=== PATIENT | female | born 1940 | race Hispanic/Latino ===

== ENCOUNTER 2017-09-15 12:33 | Observation (INO) | payer MEDICARE, OTHER ==
[~2017-09-15] VITALS: Ht 152.4 cm; Wt 70.8 kg
[~2017-09-15 12:33] MED LIST: LISINOPRIL40 MG PO; Z.0.DIOVAN160 MG PO; Z.0.LEVEMIR 3M100 UN SQ; Z.0.NOVOLOG100 UNIT/ SQ; Z.2.METFORMIN HCL500 PO
[2017-09-15 13:05] VITALS: BP 190/85
[2017-09-15 13:28] LABS: BASOPHILS % 0.5 % (0.0-1.0); EOSINOPHILS # (AUTO) 0.2 (0.0-0.4); EOSINOPHILS % 2.5 % (0.0-6.0); LYMPHOCYTES # (AUTO) 1.3 (1.0-3.2); LYMPHOCYTES % 20.4 % (18.0-39.1); MEAN CORPUSCULAR HGB CONC 28.3 g/dL (31-35); MONOCYTES # (AUTO) 0.6 (0.2-0.8); MONOCYTES % 8.9 % (4.4-11.3); NEUTROPHILS # (AUTO) 4.3 (2.1-6.9); NEUTROPHILS % 67.5 % (38.7-80.0); PLATELET COUNT 131 x10e3/uL (140-360); RED BLOOD COUNT 3.06 x10e6/uL (3.6-5.1); RED CELL DISTRIBUTION WIDTH 19.2 % (11.7-14.4)
[2017-09-15 13:33] LABS: HEMATOCRIT 20.5 % (34.2-44.1); HEMOGLOBIN 5.8 g/dL (12.0-16.0)
[2017-09-15 13:35] VITALS: BP 190/85
[2017-09-15] MEDS ORDERED: SODIUM CHLORIDE 0.9% 250ML 250 ML IV ONE (14:00)
[2017-09-15 15:32] VITALS: BP 187/80
[2017-09-15] MEDS ORDERED: METFORMIN HCL 500 MG TAB PO SCH (17:00)
[2017-09-15 18:55] VITALS: BP 209/77
[2017-09-15] MEDS ORDERED: HYDRALAZINE HCL 20 MG/ML VIAL IV STA (20:14)
[2017-09-15] MEDS ORDERED: FUROSEMIDE INJ 10 MG/ML 2 ML VIAL IV ONE (20:15)
[2017-09-15] MEDS ORDERED: DONEPEZIL HCL 5 MG TAB PO SCH (21:00)
[2017-09-15] MEDS ORDERED: SODIUM CHLORIDE 0.9% 250ML 250 ML ONE (21:21)
[2017-09-16] VITALS: BP 147/69
[2017-09-16 02:08] LABS: HEMATOCRIT 24.8 % (34.2-44.1)
[2017-09-16 02:11] LABS: HEMOGLOBIN 7.2 g/dL (12.0-16.0)
[2017-09-16] MEDS ORDERED: PROPRANOLOL HCL10 MG PO (02:31)
[2017-09-16] MEDS ORDERED: DONEPEZIL HCL10 MG (02:31)
[2017-09-16] MEDS ORDERED: LASIX40 MG PO (02:40)
[2017-09-16] MEDS ORDERED: METFORMIN HCL500 MG PO (02:42)
[2017-09-16 04:30] VITALS: BP 145/61
[2017-09-16 07:53] LABS: BASOPHILS % 0.3 % (0.0-1.0); EOSINOPHILS # (AUTO) 0.1 (0.0-0.4); EOSINOPHILS % 0.6 % (0.0-6.0); HEMATOCRIT 27.5 % (34.2-44.1); HEMOGLOBIN 8.4 g/dL (12.0-16.0); LYMPHOCYTES # (AUTO) 1.3 (1.0-3.2); LYMPHOCYTES % 9.9 % (18.0-39.1); MEAN CORPUSCULAR HEMOGLOBIN 21.4 pg (28-32); MEAN CORPUSCULAR HGB CONC 30.5 g/dL (31-35); MEAN CORPUSCULAR VOLUME 70.2 fL (81-99); MONOCYTES % 7.4 % (4.4-11.3); NEUTROPHILS # (AUTO) 10.8 (2.1-6.9); NEUTROPHILS % 81.4 % (38.7-80.0); PLATELET COUNT 147 x10e3/uL (140-360); RED BLOOD COUNT 3.92 x10e6/uL (3.6-5.1); RED CELL DISTRIBUTION WIDTH 21.2 % (11.7-14.4)
[2017-09-16 07:56] VITALS: BP 144/62
[2017-09-16] MEDS ORDERED: FUROSEMIDE 40 MG TAB PO SCH ×2 (09:00)
[2017-09-16] MEDS ORDERED: LISINOPRIL 10 MG TAB PO SCH (09:00)
[2017-09-16] MEDS ORDERED: METFORMIN HCL 500 MG TAB PO SCH (09:00)
[2017-09-16] MEDS ORDERED: PROPRANOLOL HCL 10 MG TAB PO SCH (09:00)
[2017-09-16] MEDS ORDERED: PROPRANOLOL HCL 40 MG TAB PO SCH (09:00)
== END 2017-09-16 08:58 | disposition home or self-care (01) ==
LOC: IMCU 12:33
PROVIDERS: ADMIT Internal Medicine Gastroenterology; ATTEND Internal Medicine Gastroenterology
DX: D64.9 Anemia, unspecified (principal)
CPT/HCPCS: 36415 ×2; 36430; 82948 ×2; 85014; 85018; 85025 ×2; 86850; 86900; 86920; G0378 ×2; J0360; J1940; J7050; P9016

== ENCOUNTER → 2017-09-23 | Day surgery (SDC) | payer MEDICARE, OTHER ==
[2017-09-13 14:48] LABS: BASOPHILS % 0.5 % (0.0-1.0); EOSINOPHILS # (AUTO) 0.2 (0.0-0.4); EOSINOPHILS % 3.3 % (0.0-6.0); HEMATOCRIT 23.7 % (34.2-44.1); LYMPHOCYTES # (AUTO) 1.5 (1.0-3.2); LYMPHOCYTES % 22.2 % (18.0-39.1); MEAN CORPUSCULAR HEMOGLOBIN 19.1 pg (28-32); MEAN CORPUSCULAR HGB CONC 27.4 g/dL (31-35); MEAN CORPUSCULAR VOLUME 69.7 fL (81-99); MONOCYTES # (AUTO) 0.7 (0.2-0.8); MONOCYTES % 10.2 % (4.4-11.3); NEUTROPHILS # (AUTO) 4.2 (2.1-6.9); NEUTROPHILS % 63.6 % (38.7-80.0); PLATELET COUNT 146 x10e3/uL (140-360); RED CELL DISTRIBUTION WIDTH 19.5 % (11.7-14.4)
[2017-09-13 15:05] LABS: HEMOGLOBIN 6.5 g/dL (12.0-16.0)
[2017-09-13 17:35] LABS: HYPOCHROMASIA MARKED; PLATELET ESTIMATE SLIGHTLY DECREASED; PLATELET MORPHOLOGY COMMENT NORMAL; RBC MORPHOLOGY COMMENT ABNORMAL
[2017-09-21 10:26] LABS: BASOPHILS # (AUTO) 0.1 (0.0-0.1); BASOPHILS % 0.8 % (0.0-1.0); EOSINOPHILS # (AUTO) 0.2 (0.0-0.4); HEMATOCRIT 28.3 % (34.2-44.1); HEMOGLOBIN 8.2 g/dL (12.0-16.0); LYMPHOCYTES % 13.9 % (18.0-39.1); MEAN CORPUSCULAR HEMOGLOBIN 21.5 pg (28-32); MEAN CORPUSCULAR VOLUME 74.1 fL (81-99); MONOCYTES # (AUTO) 0.6 (0.2-0.8); NEUTROPHILS # (AUTO) 5.3 (2.1-6.9); PLATELET COUNT 120 x10e3/uL (140-360); RED BLOOD COUNT 3.82 x10e6/uL (3.6-5.1); RED CELL DISTRIBUTION WIDTH 23.8 % (11.7-14.4)
[~2017-09-23] MED LIST changes: +DONEPEZIL HCL10 MG; +LASIX40 MG PO; +METFORMIN HCL500 MG PO; +MIDAZOLAM HCL 2 MG/2 ML VIAL ONE; +PROPOFOL IV EMULSION 10 MG/ML 50 ML VIAL ONE; +PROPRANOLOL HCL10 MG PO
== END | disposition home or self-care (01) ==
LOC: OR 06:40
PROVIDERS: ATTEND Internal Medicine Gastroenterology
DX: D50.9 Iron deficiency anemia, unspecified (principal); K29.50 Unspecified chronic gastritis without bleeding; K55.21 Angiodysplasia of colon with hemorrhage; I85.00 Esophageal varices without bleeding; K57.30 Diverticulosis of large intestine without perforation or abscess without bleeding; K64.8 Other hemorrhoids; K44.9 Diaphragmatic hernia without obstruction or gangrene; I10 Essential (primary) hypertension; E11.9 Type 2 diabetes mellitus without complications; E66.9 Obesity, unspecified; R41.0 Disorientation, unspecified; F32.9 Major depressive disorder, single episode, unspecified; Z01.810 Encounter for preprocedural cardiovascular examination; Z01.812 Encounter for preprocedural laboratory examination; Z79.4 Long term (current) use of insulin; Z68.32 Body mass index [BMI] 32.0-32.9, adult
CPT/HCPCS: 36415 ×2; 43239; 43244; 45388; 85025 ×2; 93005; J2250